=== PATIENT | female | born 1980 | race Caucasian/White ===

== ENCOUNTER → 2017-12-28 11:47 | Outpatient (CLI) | payer OTHER, SELFPAY ==
[2017-12-28 13:40] LABS: Bilirubin Urine UA NEGATIVE (NEGATIVE); Color Urine UA YELLOW; Glucose Urine UA NEGATIVE (Normal); Ketones Urine UA NEGATIVE (NEGATIVE); Leukocyte Esterase Urine UA 2+ (NEGATIVE); Nitrite Urine UA Negative (Negative); Occult Blood Urine UA 3+ (Negative); Protein Urine UA NEGATIVE (Negative); Urobilinogen Urine UA 0.2 E.U./dL (0.2)
[2017-12-28 13:55] LABS: Appearance Urine UA CLOUDY
[2017-12-28 13:56] LABS: Bacteria Urine None Seen; Culture Indicated Urine Specimen Cultured; RBC Urine 1-5/HPF (0-5/HPF); Squamous Epithelial Cell Urine None Seen; WBC Urine 10-30/HPF (0-5/HPF)
== END ==
PROVIDERS: PCP Internal Medicine; Visit Provider Internal Medicine
DX: R39.15 Urgency of urination (principal); R53.83 Other fatigue
CPT/HCPCS: 81003; 81015; 87086

== ENCOUNTER → 2017-12-29 09:47 | Outpatient (CLI) | payer OTHER, SELFPAY ==
[2017-12-29 10:29] LABS: Add Manual Diff / Slide Review NO; Basophils Percent Auto 1.3 % (0-2); Eosinophils Percent Auto 2.1 % (2-4); Hemoglobin 13.7 g/dL (12.0-16.0); Lymphocytes Percent Auto 24.7 % (25-40); Mean Corpuscular HGB Conc 33.4 % (30-36); Mean Corpuscular Hemoglobin 29.3 PG (26-34); Mean Corpuscular Volume 87.7 fL (80-100); Monocytes Percent Auto 7.2 % (3-14); Neutrophils Absolute Auto 4400 /uL (3000-5900); Neutrophils Percent Auto 64.7 % (50-75); Platelet Count 328 X10^3/uL (150-400); Red Blood Cell Count 4.67 X10^6/uL (4.0-5.2); Red Cell Distribution Width 12.4 % (11.6-14.8); White Blood Cell Count 6.8 X10^3/uL (4.5-11.0)
[2017-12-29 10:53] LABS: Erythrocyte Sedimentation Rate 10 MM/HR (0-20)
[2017-12-29 10:58] LABS: HEMOLYSIS < 15 (0-50); Iron 93 ug/dL (37-170)
[2017-12-29 11:10] LABS: Percent Iron Saturation 23 % (15-50); Total Iron Binding Capacity 399 ug/dL (265-497); Transferrin 313 mg/dL (206-381)
[2017-12-29 11:18] LABS: Vitamin D 25 Hydroxy (D3) 38.7 ng/mL (30.0-100.0)
[2017-12-29 11:51] LABS: Hep C Virus Ab w/Reflex Quant NEGATIVE s/c (NEGATIVE)
[2017-12-29 11:53] LABS: Vitamin B12 646 pg/mL (239-931)
[2018-01-01 17:26] LABS: 18 kD IgG Band Nonreactive; 23 kD IgG Band Nonreactive; 28 kD IgG Band Nonreactive; 30 kD IgG Band Nonreactive; 39 kD IgG Band Nonreactive; 41 kD IgG Bands Reactive; 45 kD IgG Band Reactive; 58 kD IgG Band Nonreactive; 66 kD IgG Band Nonreactive; 93 kD IgG Bands Nonreactive
[2018-01-03 12:34] LABS: ANA Screen, IFA Positive (Negative)
[2018-01-04 11:18] LABS: HIV-1/2 confirmation Not Detected (Not detected)
== END ==
PROVIDERS: PCP Internal Medicine; Visit Provider Internal Medicine
DX: R53.83 Other fatigue (principal)
CPT/HCPCS: 36415; 82306; 82607; 83540; 83550; 85025; 85651; 86038; 86618; 86803; 87535

== ENCOUNTER 2018-05-10 10:06 | Emergency (ER) | payer OTHER, SELFPAY ==
[2018-05-10 10:25] VITALS: BP 142/91; PULSE 111; RESP 18; TEMP 36.8; O2SAT 99; BMI 25.7
[2018-05-10 10:34] LABS: Appearance Urine UA TURBID; Bilirubin Urine UA NEGATIVE (NEGATIVE); Color Urine UA RED; Glucose Urine UA NEGATIVE (Normal); Occult Blood Urine UA 3+ (Negative); Protein Urine UA 2+ (Negative); pH Urine UA 6.5 (4.5-8.0)
[2018-05-10 10:35] VITALS: BP 130/71; PULSE 100; RESP 14; O2SAT 99
--- NOTE | 2018-05-10 10:36 | ED.FEMALEGU ---
HPI - Female Genitourinary General Chief complaint: Vaginal Bleeding Stated complaint: vaginal bleeding Time Seen by Provider: 05/10/18 10:18 Source: patient Mode of arrival: ambulatory Limitations: no limitations History of Present Illness HPI Narrative: 37-year-old nonsmoking female presents with a chief complaint of vaginal bleeding over the course of the day. She is not dizzy nor weak or lightheaded. She denies any pain. She states she is not . She is due for her menses. Related Data Home Medications Medication Instructions Recorded Confirmed clindamycin phosphate 1 applic TOPICAL BID PRN 05/10/18 05/10/18 fluoxetine [Prozac] 40 mg PO DAILY 05/10/18 05/10/18 loratadine 10 mg PO DAILY 05/10/18 05/10/18 multivitamin 1 tab PO DAILY 05/10/18 05/10/18 norethindrone ac-eth estradiol 1 tab PO DAILY 05/10/18 05/10/18 [Microgestin 1.5/30 (21)] sulfacetamide sodium [Ovace Plus] 1 applic TOPICAL BID PRN 05/10/18 05/10/18 Previous Rx's Medication Instructions Recorded medroxyprogesterone See Label Instructions .ROUTE 05/10/18 .COMPLEX #60 tab Allergies Allergy/AdvReac Type Severity Reaction Status Date / Time No Known Drug Allergies Allergy Verified 05/10/18 10:25 Review of Systems Review of Systems All systems reviewed & are unremarkable except as noted in HPI and below Constitutional Denies chills, Denies fever(s), Denies lethargy and Denies weakness Eyes Denies change in vision, Denies eye discharge, Denies irritation and Denies loss of vision ENT Ears, Nose, Mouth, and Throat: Denies change in voice, Denies neck pain and Denies sore throat Cardiovascular Denies chest pain, Denies irregular heart rhythm, Denies lightheadedness, Denies palpitations, Denies dyspnea, Denies dyspnea on exertion and Denies orthopnea Respiratory Denies cough, Denies dyspnea, Denies dyspnea on exertion and Denies wheezing Gastrointestinal Gastrointestinal: Denies abdominal pain, Denies change in bowel habits, Denies diarrhea, Denies nausea and Denies vomiting Genitourinary Reports abnormal vaginal bleeding, Denies hematuria, Denies flank pain, Denies urinary incontinence and Denies urinary urgency Musculoskeletal Denies neck pain Integumentary/Breasts Denies pruritus, Denies erythema, Denies rash and Denies wounds Neurologic Denies confusion, Denies loss of vision and Denies weakness Psychiatric Denies anxiety, Denies confusion, Denies depression, Denies homicidal ideation and Denies suicidal ideation Endocrine Denies palpitations Hematologic/Lymphatic Denies easy bruising Allergic/Immunologic Denies wheezing [facility] Medical History Anxiety (Chronic 2016) Depression (Chronic 2016) Seborrheic dermatitis (Chronic 1990) Chicken pox (Resolved 1979) Papilloma of right breast (Resolved 05/1995) Surgical History Anesthesia (Resolved) History of breast surgery (Resolved 05/1995) Status post arthroscopy (Resolved 07/1995) Family History Father Age: 78 Skin cancer Grandmother Non Hodgkin's lymphoma Grandfather No problems noted. Grandfather No problems noted. Grandmother No problems noted. Social History Smoking Status: Never smoker Exam Narrative Exam Narrative: GEN: AOx3 and in mild distress EYES: Pupils are equal, round, and reactive to light and accommodation. Extraoccular muscles are intact bilaterally. There is no subconjunctival hemorrhage or exudate. CHEST: Lungs are clear to auscultation bilaterally and free of wheezes, rales, or rhonchi. Heart rate is regular rhythm, there are no murmurs, clicks, rubs, or gallops. There is no chest wall tenderness. ABD: Abdomen is soft and nontender. There is no guarding or rebound. Bowel sounds are normal in all 4 quadrants. There is no mass or organomegaly. PELVIC: Moderate dark blood clots coming from a closed cervical os. This is performed with the patient's permission and female nursing lanolin plant operator at the bedside EXT: Full painless ROM of all extremities with no loss of sensation or strength. SKIN: Warm, pink, and dry. No erythema or rash Initial Vital Signs Initial Vital Signs: Vital Signs Temperature 98.2 F 05/10/18 10:25 Pulse Rate 111 H 05/10/18 10:25 Respiratory Rate 18 11/12/18 10:25 Blood Pressure 142/91 H 05/10/18 10:25 Pulse Oximetry 99 05/10/18 10:25 Course Orders Ordered: ED Orders 05/10/18 10:56 Complete Blood Count AUTO DIFF Stat Test Serum,Qual Stat Consultations Consultation #1: Dr. Barroso happy to discuss this patient. Given description of history, physical and ultrasound any suggest this is likely a uterine fibroid. He recommends high dose medroxyprogesterone and close follow-up Vital Signs - 8 hr 05/10/18 12:09 Pulse Rate 92 H Respiratory Rate 14 Blood Pressure [Left Arm] 131/70 Pulse Oximetry 99 MDM - Female Genitourinary Medical Records Attestation: I reviewed the patient's medical records. Lab Data Attestation: I reviewed the patient's lab results. Result diagrams: 05/10/18 10:56 Lab Results 05/10/18 05/10/18 05/10/18 Range/Units 10:25 10:25 10:56 WBC 6.3 (4.5-11.0) X10^3/uL RBC 4.37 (4.0-5.2) X10^6/uL Hgb 12.6 (12.0-16.0) g/dL Hct 37.7 (36-46) % MCV 86.2 (80-100) fL MCH 28.9 (26-34) PG MCHC 33.5 (30-36) % RDW 12.7 (11.6-14.8) % Plt Count 297 (150-400) X10^3/uL Neut % (Auto) 69.0 (50-75) % Lymph % (Auto) 20.8 L (25-40) % [place] % (Auto) 8.5 (3-14) % Eos % (Auto) 1.0 L (2-4) % Baso % (Auto) 0.7 (0-2) % Neut # (Auto) 4300 (5709-7175) /uL Serum , Qual (Negative) Urine Color Red Urine Appearance Turbid Urine pH 6.5 (4.5-8.0) Ur Specific [place] 1.010 (1.000-1.035) Urine Protein 2+ H (Negative) Urine Glucose (UA) Negative (Normal) g/dL Urine Ketones Negative (NEGATIVE) Urine Occult Blood 3+ H (Negative) Urine Nitrate Negative (Negative) Urine Bilirubin Negative (NEGATIVE) Urine Urobilinogen 0.2 (0.2) E.U./dL Ur Leukocyte Esterase Negative (NEGATIVE) Urine RBC >100/hpf H (0-5/HPF) Urine WBC None seen (0-5/HPF) Urine Bacteria Occasional (0-1) (None) Ur Culture Indicated? Cult not indicated Micro UA Comment Not Reportable Urine Test Negative (Negative) 05/10/18 Range/Units 10:56 WBC (4.5-11.0) X10^3/uL RBC (4.0-5.2) X10^6/uL Hgb (12.0-16.0) g/dL Hct (36-46) % MCV (80-100) fL MCH (26-34) PG MCHC (30-36) % RDW (11.6-14.8) % Plt Count (150-400) X10^3/uL Neut % (Auto) (50-75) % Lymph % (Auto) (25-40) % [place] % (Auto) (3-14) % Eos % (Auto) (2-4) % Baso % (Auto) (0-2) % Neut # (Auto) (7914-6069) /uL Serum , Qual Negative (Negative) Urine Color Urine Appearance Urine pH (4.5-8.0) Ur Specific [place] (1.000-1.035) Urine Protein (Negative) Urine Glucose (UA) (Normal) g/dL Urine Ketones (NEGATIVE) Urine Occult Blood (Negative) Urine Nitrate (Negative) Urine Bilirubin (NEGATIVE) Urine Urobilinogen (0.2) E.U./dL Ur Leukocyte Esterase (NEGATIVE) Urine RBC (0-5/HPF) Urine WBC (0-5/HPF) Urine Bacteria (None) Ur Culture Indicated? Micro UA Comment Urine Test (Negative) ECG Data Attestation: I personally reviewed and interpreted this ECG as follows: Discharge Plan Departure Patient Disposition: Home Clinical Impression: Abnormal vaginal bleeding Discharge Date/Time: 05/10/18 12:18 Interventions: ED Discharge Assessment Last Done: 05/10/18 12:18 Instructions: DI for Uterine Fibroids Activity Restrictions/Additional Instructions: *You have been diagnosed with [ heavy vaginal bleeding, likely due to uterine fibroid ] *What to do: *Take medications as directed: sent to [facility] in [place] at your request *Follow up with Dr. Benjamin (key holder), call for an appointment. Let them know you were seen in the Emergency Department and that we ask that you be seen in follow up *Return to ER if you should have any new, worsening or concerning symptoms, such as [ increased bleeding, dizziness, weakness, lightheadedness, pale skin, excessive sweating, fatigue or other bothersome symptoms] Prescriptions: New medroxyprogesterone 10 mg tablet See Label Instructions .ROUTE .COMPLEX Qty: 60 RF: 0 No Action norethindrone ac-eth estradiol [Microgestin 1.5 (21)] 1.5-30 mg-mcg tablet 1 tab PO DAILY RF: 0 loratadine 10 mg tablet 10 mg PO DAILY RF: 0 fluoxetine [Prozac] 40 MG capsule 40 mg PO DAILY RF: 0 clindamycin phosphate 1 % solution 1 applic Topical BID PRN (Reason: break outs) RF: 0 sulfacetamide sodium [Ovace Plus] 9.8 % lotion 1 applic Topical BID PRN (Reason: breakouts) RF: 0 multivitamin Tablet 1 tab PO DAILY RF: 0 Referrals: Esa Benjamin MD [Physician] - Lupis Moss ARNP [Primary Care Provider] -
--- NOTE | 2018-05-10 10:36 | PC.NURSE ---
Placed on continuous oral contraceptives for heavy vaginal bleeding. Woke Thursday night to Thursday am w/ heavy bleeding w/ clots. Denies nausea / vomiting/ diarrhea/dizzyness. Taking po fluids well. No acute distress.
[2018-05-10 10:37] LABS: Pregnancy Test Urine Negative (Negative)
--- NOTE | 2018-05-10 10:43 | DI.US.S_ITS ---
PROCEDURE: US PELVIC COMPLETE INDICATIONS: heavy vaginal bleeding TECHNIQUE: Real-time scanning was performed of the pelvic organs, with image documentation. Additional endovaginal scanning was necessary due to incomplete visualization of the adnexal and endometrial structures by transabdominal scanning. COMPARISON: None. FINDINGS: Transabdominal scanning: Limited scanning through the kidneys shows no hydronephrosis. No pathologic free abdominal or pelvic fluid. Endovaginal scanning: Uterus: Uterus is normal in size at 9.2 x 3.5 x 4.7 cm. there is a 2.6 x 1.4 cm complex anechoic lesion in the endometrial cavity may represent early intrauterine . No yolk sac or heart activity identified in the anechoic focus in the endometrial cavity. The endometrium measures 8.0 mm in combined thickness. Ovaries: Adnexa not well-visualized and cannot be evaluated. IMPRESSION: 1. 2.6 x 1.4 cm complex predominantly anechoic focus in the endometrial cavity. Early intrauterine cannot be excluded. Based on diameter of the anechoic focus in the ultrasound estimated gestational age would be 5 weeks 2 days. Please correlate with clinical data and quantitative beta hCG. 2. Adnexa not visualized and cannot be evaluated. Dictated by: Ame Butler MD, PhD on 05/10/2018 at 11:34 Approved by: Ame Butler MD, PhD on 05/10/2018 at 11:38
[2018-05-10 10:58] LABS: Ketones Urine UA NEGATIVE (NEGATIVE); Nitrite Urine UA NEGATIVE (Negative); Urobilinogen Urine UA 0.2 E.U./dL (0.2)
[2018-05-10 10:59] LABS: Leukocyte Esterase Urine UA NEGATIVE (NEGATIVE); WBC Urine None Seen (0-5/HPF)
[2018-05-10 11:00] LABS: Bacteria Urine Occasional (0-1); Culture Indicated Urine Cult Not Indicated; RBC Urine >100/HPF (0-5/HPF)
[2018-05-10 11:08] LABS: Add Manual Diff / Slide Review NO; Basophils Percent Auto 0.7 % (0-2); Hematocrit 37.7 % (36-46); Hemoglobin 12.6 g/dL (12.0-16.0); Lymphocytes Percent Auto 20.8 % (25-40); Mean Corpuscular HGB Conc 33.5 % (30-36); Mean Corpuscular Hemoglobin 28.9 PG (26-34); Mean Corpuscular Volume 86.2 fL (80-100); Monocytes Percent Auto 8.5 % (3-14); Neutrophils Absolute Auto 4300 /uL (3000-5900); Platelet Count 297 X10^3/uL (150-400); Red Blood Cell Count 4.37 X10^6/uL (4.0-5.2); Red Cell Distribution Width 12.7 % (11.6-14.8); White Blood Cell Count 6.3 X10^3/uL (4.5-11.0)
[2018-05-10 11:32] LABS: Pregnancy Test Serum,Qual Negative (Negative)
[2018-05-10 11:37] VITALS: BP 125/73; PULSE 88; RESP 15; O2SAT 97
[2018-05-10 12:09] VITALS: BP 131/70; PULSE 92; RESP 14; O2SAT 99
--- NOTE | 2018-05-10 16:47 | ED_ITS ---
HPI - Female Genitourinary General Chief complaint: Vaginal Bleeding Stated complaint: vaginal bleeding Time Seen by Provider: 05/10/18 10:18 Source: patient Mode of arrival: ambulatory Limitations: no limitations History of Present Illness HPI Narrative: 37-year-old nonsmoking female presents with a chief complaint of vaginal bleeding over the course of the day. She is not dizzy nor weak or lightheaded. She denies any pain. She states she is not . She is due for her menses. Related Data Home Medications Medication Instructions Recorded Confirmed clindamycin phosphate 1 applic TOPICAL BID PRN 05/10/18 05/10/18 fluoxetine [Prozac] 40 mg PO DAILY 05/10/18 05/10/18 loratadine 10 mg PO DAILY 05/10/18 05/10/18 multivitamin 1 tab PO DAILY 05/10/18 05/10/18 norethindrone ac-eth estradiol 1 tab PO DAILY 05/10/18 05/10/18 [Microgestin 1.5/30 (21)] sulfacetamide sodium [Ovace Plus] 1 applic TOPICAL BID PRN 05/10/18 05/10/18 Previous Rx's Medication Instructions Recorded medroxyprogesterone See Label Instructions .ROUTE 05/10/18 .COMPLEX #60 tab Allergies Allergy/AdvReac Type Severity Reaction Status Date / Time No Known Drug Allergies Allergy Verified 05/10/18 10:25 Review of Systems Review of Systems All systems reviewed & are unremarkable except as noted in HPI and below Constitutional Denies chills, Denies fever(s), Denies lethargy and Denies weakness Eyes Denies change in vision, Denies eye discharge, Denies irritation and Denies loss of vision ENT Ears, Nose, Mouth, and Throat: Denies change in voice, Denies neck pain and Denies sore throat Cardiovascular Denies chest pain, Denies irregular heart rhythm, Denies lightheadedness, Denies palpitations, Denies dyspnea, Denies dyspnea on exertion and Denies orthopnea Respiratory Denies cough, Denies dyspnea, Denies dyspnea on exertion and Denies wheezing Gastrointestinal Gastrointestinal: Denies abdominal pain, Denies change in bowel habits, Denies diarrhea, Denies nausea and Denies vomiting Genitourinary Reports abnormal vaginal bleeding, Denies hematuria, Denies flank pain, Denies urinary incontinence and Denies urinary urgency Musculoskeletal Denies neck pain Integumentary/Breasts Denies pruritus, Denies erythema, Denies rash and Denies wounds Neurologic Denies confusion, Denies loss of vision and Denies weakness Psychiatric Denies anxiety, Denies confusion, Denies depression, Denies homicidal ideation and Denies suicidal ideation Endocrine Denies palpitations Hematologic/Lymphatic Denies easy bruising Allergic/Immunologic Denies wheezing [facility] Medical History Anxiety (Chronic 2016) Depression (Chronic 2016) Seborrheic dermatitis (Chronic 1990) Chicken pox (Resolved 1979) Papilloma of right breast (Resolved 05/1995) Surgical History Anesthesia (Resolved) History of breast surgery (Resolved 05/1995) Status post arthroscopy (Resolved 07/1995) Family History Father Age: 78 Skin cancer Grandmother Non Hodgkin's lymphoma Grandfather No problems noted. Grandfather No problems noted. Grandmother No problems noted. Social History Smoking Status: Never smoker Exam Narrative Exam Narrative: GEN: AOx3 and in mild distress EYES: Pupils are equal, round, and reactive to light and accommodation. Extraoccular muscles are intact bilaterally. There is no subconjunctival hemorrhage or exudate. CHEST: Lungs are clear to auscultation bilaterally and free of wheezes, rales, or rhonchi. Heart rate is regular rhythm, there are no murmurs, clicks, rubs, or gallops. There is no chest wall tenderness. ABD: Abdomen is soft and nontender. There is no guarding or rebound. Bowel sounds are normal in all 4 quadrants. There is no mass or organomegaly. PELVIC: Moderate dark blood clots coming from a closed cervical os. This is performed with the patient's permission and female nursing pattern clerk at the bedside EXT: Full painless ROM of all extremities with no loss of sensation or strength. SKIN: Warm, pink, and dry. No erythema or rash Initial Vital Signs Initial Vital Signs: Vital Signs Temperature 98.2 F 05/10/18 10:25 Pulse Rate 111 H 05/10/18 10:25 Respiratory Rate 18 11/12/18 10:25 Blood Pressure 142/91 H 05/10/18 10:25 Pulse Oximetry 99 05/10/18 10:25 Course Orders Ordered: ED Orders 05/10/18 10:56 Complete Blood Count AUTO DIFF Stat Test Serum,Qual Stat Consultations Consultation #1: Dr. Barroso happy to discuss this patient. Given description of history, physical and ultrasound any suggest this is likely a uterine fibroid. He recommends high dose medroxyprogesterone and close follow-up Vital Signs - 8 hr 05/10/18 12:09 Pulse Rate 92 H Respiratory Rate 14 Blood Pressure [Left Arm] 131/70 Pulse Oximetry 99 MDM - Female Genitourinary Medical Records Attestation: I reviewed the patient's medical records. Lab Data Attestation: I reviewed the patient's lab results. Result diagrams: 05/10/18 10:56 Lab Results 05/10/18 05/10/18 05/10/18 Range/Units 10:25 10:25 10:56 WBC 6.3 (4.5-11.0) X10^3/uL RBC 4.37 (4.0-5.2) X10^6/uL Hgb 12.6 (12.0-16.0) g/dL Hct 37.7 (36-46) % MCV 86.2 (80-100) fL MCH 28.9 (26-34) PG MCHC 33.5 (30-36) % RDW 12.7 (11.6-14.8) % Plt Count 297 (150-400) X10^3/uL Neut % (Auto) 69.0 (50-75) % Lymph % (Auto) 20.8 L (25-40) % [place] % (Auto) 8.5 (3-14) % Eos % (Auto) 1.0 L (2-4) % Baso % (Auto) 0.7 (0-2) % Neut # (Auto) 4300 (1982-1645) /uL Serum , Qual (Negative) Urine Color Red Urine Appearance Turbid Urine pH 6.5 (4.5-8.0) Ur Specific [place] 1.010 (1.000-1.035) Urine Protein 2+ H (Negative) Urine Glucose (UA) Negative (Normal) g/dL Urine Ketones Negative (NEGATIVE) Urine Occult Blood 3+ H (Negative) Urine Nitrate Negative (Negative) Urine Bilirubin Negative (NEGATIVE) Urine Urobilinogen 0.2 (0.2) E.U./dL Ur Leukocyte Esterase Negative (NEGATIVE) Urine RBC >100/hpf H (0-5/HPF) Urine WBC None seen (0-5/HPF) Urine Bacteria Occasional (0-1) (None) Ur Culture Indicated? Cult not indicated Micro UA Comment Not Reportable Urine Test Negative (Negative) 05/10/18 Range/Units 10:56 WBC (4.5-11.0) X10^3/uL RBC (4.0-5.2) X10^6/uL Hgb (12.0-16.0) g/dL Hct (36-46) % MCV (80-100) fL MCH (26-34) PG MCHC (30-36) % RDW (11.6-14.8) % Plt Count (150-400) X10^3/uL Neut % (Auto) (50-75) % Lymph % (Auto) (25-40) % [place] % (Auto) (3-14) % Eos % (Auto) (2-4) % Baso % (Auto) (0-2) % Neut # (Auto) (5802-1656) /uL Serum , Qual Negative (Negative) Urine Color Urine Appearance Urine pH (4.5-8.0) Ur Specific [place] (1.000-1.035) Urine Protein (Negative) Urine Glucose (UA) (Normal) g/dL Urine Ketones (NEGATIVE) Urine Occult Blood (Negative) Urine Nitrate (Negative) Urine Bilirubin (NEGATIVE) Urine Urobilinogen (0.2) E.U./dL Ur Leukocyte Esterase (NEGATIVE) Urine RBC (0-5/HPF) Urine WBC (0-5/HPF) Urine Bacteria (None) Ur Culture Indicated? Micro UA Comment Urine Test (Negative) ECG Data Attestation: I personally reviewed and interpreted this ECG as follows: Discharge Plan Departure Patient Disposition: Home Clinical Impression: Abnormal vaginal bleeding Discharge Date/Time: 05/10/18 12:18 Interventions: ED Discharge Assessment Last Done: 05/10/18 12:18 Instructions: DI for Uterine Fibroids Activity Restrictions/Additional Instructions: *You have been diagnosed with [ heavy vaginal bleeding, likely due to uterine fibroid ] *What to do: *Take medications as directed: sent to [facility] in [place] at your request *Follow up with Dr. Benjamin (fisheries manager), call for an appointment. Let them know you were seen in the Emergency Department and that we ask that you be seen in follow up *Return to ER if you should have any new, worsening or concerning symptoms , such as [ increased bleeding, dizziness, weakness, lightheadedness, pale skin , excessive sweating, fatigue or other bothersome symptoms] Prescriptions: New medroxyprogesterone 10 mg tablet See Label Instructions .ROUTE .COMPLEX Qty: 60 RF: 0 No Action norethindrone ac-eth estradiol [Microgestin 1.5 (21)] 1.5-30 mg-mcg tablet 1 tab PO DAILY RF: 0 loratadine 10 mg tablet 10 mg PO DAILY RF: 0 fluoxetine [Prozac] 40 MG capsule 40 mg PO DAILY RF: 0 clindamycin phosphate 1 % solution 1 applic Topical BID PRN (Reason: break outs) RF: 0 sulfacetamide sodium [Ovace Plus] 9.8 % lotion 1 applic Topical BID PRN (Reason: breakouts) RF: 0 multivitamin Tablet 1 tab PO DAILY RF: 0 Referrals: Esa Benjamin MD [Physician] - Lupis Moss ARNP [Primary Care Provider] -
== END 2018-05-10 12:18 | disposition home or self-care (01) ==
PROVIDERS: Emergency Provider Emergency Medicine; PCP Internal Medicine
DX: N93.9 Abnormal uterine and vaginal bleeding, unspecified (principal)
CPT/HCPCS: 36415; 76856; 81003; 81015; 81025; 84703; 85025; 99283; 99284

== ENCOUNTER 2018-06-25 12:19 | Day surgery (SDC) | payer OTHER, SELFPAY ==
[2018-06-24 14:51] VITALS: BMI 27.8
[2018-06-25] VITALS (7 sets, daily range): BP systolic 108–126; BP diastolic 65–80; PULSE 67–85; RESP 11–16; TEMP 36.3–37.2; O2SAT 92–100; BMI 27.8
--- NOTE | 2018-06-25 | PATH_ITS ---
[facility] Accession Number: [id number] . 01 Material submitted: . PART A: ENDOMETRIAL CURETTINGS PART B: ENDOMETRIAL POLYP . 02 Diagnosis: A. Endometrial Curettings: Portions of weakly proliferative endometrial tissue with features of breakdown and strips of endometrial glandular epithelium; negative for glandular hyperplasia, cytologic atypia, and malignancy. . B. Endometrial Polyp: Small fragments of glandular epithelium, possibly from endocervix/lower uterine segment; negative for glandular dysplasia and malignancy. Abundant squames with no diagnostic abnormality. No definite endometrial tissue/endometrial polyp identified. Please see comment. MRV/06/28/2018 . 02 Comment: B. Due to the scant nature of endometrial tissue in this biopsy, it may not be entirely sales representative graphic art of this patient's endometrium. Additional sampling could be considered, if clinically appropriate. . 02 Electronically signed: . Vidya Wang MD, Pathologist NPI- [id number] . 01 Gross description: . A. Received in formalin, labeled Kenya Easley, endometrial curettings, are multiple brown corley irregularly shaped soft tissue aggregating to 2.0 x 0.4 x 0.2 cm. The tissues are filtered and are entirely submitted as A1. B. Received in formalin, labeled with the patient's name and endometrial polyp, are multiple corley-brown soft and mucoid tissues aggregating to 2.2 x 1.0 x 0.3 cm. The tissues are filtered and are entirely submitted as B1. ([id number]) /MRV . 02 Pathologist provided ICD-10: N85.00 . 02 CPT . 780996, 500358 Performed at: [address], [place], [place] [id number] MD Estevan Hernández MD Phone: [phone] Performed at: 02 [facility] [id number] [place] [id number] MD Sparkle Jacob MD Phone: [phone]
--- NOTE | 2018-06-25 14:54 | SUR.OPER ---
Lithotomy on padded OR bed, head on pillow, arms secured on padded arm boards at <90 degrees abduction. Legs secured in padded yellow fins stirrups.
[2018-06-25] MEDS: LACTATED RINGERS 1,000 ML 100 ML IV (15:00)
--- NOTE | 2018-06-25 15:09 | PM.GYNOP.1 ---
Operative Date/Time/Diagnoses Date of procedure: 06/25/18 Time of procedure: 15:09 Pre-op diagnosis: Endometrial Post-op diagnosis: same Procedure: Procedures Operation Date: 06/25/18 13:30 Actual Procedures Side Surgeon p Hysteroscopy D&C, Polypectomy Esa Benjamin MD Indications: Menometrorrhagia Endometrial mass probable polyp Surgeon: Esa Benjamin Anesthesia Type: General Operative Notes Findings: Endometrial polyp Closure Type: not applicable Specimen(s): endometrial curettings and endometrial polyp Estimated blood loss (mL): 50 Blood products transfused: none Procedure in detail: The patient was placed supine upon the operating table and anesthetized. She was then placed in the dorsal lithotomy position and examined under anesthesia. Under anesthesia she was felt of an anterior uterus normal size with no adnexal masses. Patient was then draped and prepared in the usual fashion. Posterior weighted retractor was set in place in the anterior lip of the cervix grasped with a toothed tenaculum. Uterine cavity sounded to seven 0.5 cm. Uterine cervix was dilated to a [place] is 11. The hysteroscope was placed and there was no obvious small endometrial polyp. The Arya stone forceps were then introduced the polyp was removed and sent for pathologic exam. A curettage of the endometrial cavity followed. Re-hysteroscopy of the cavity showed it to be clean and free of all tissue. Complications: none Post-operative Condition: stable Disposition: PACU Plan for aftercare: Routine aftercare
== END 2018-06-25 16:08 | disposition home or self-care (01) ==
PROC: 0UDB8ZZ Extraction of Endometrium, Via Natural or Artificial Opening Endoscopic (ICD-10-PCS; CPT 58558; principal; 2018-06-25 13:30)
DX: N85.00 Endometrial hyperplasia, unspecified (principal)
CPT/HCPCS: 58558; 88305; J1100; J2250; J2405; J2704; J3010